=== PATIENT | male | born 1950 | race American Indian/Alaskan Native ===

== ENCOUNTER 2017-01-19 10:23 | Inpatient (IN) | payer MEDICAID ==
--- NOTE | 2017-01-19 11:54 | Emergency Department Report ---
ED General Adult HPI - General Chief complaint: Nausea/Vomiting/Diarrhea Stated complaint: N/V Time Seen by Provider: 01/19/17 11:53 Source: patient, EMS Mode of arrival: Stretcher Limitations: Physical Limitation - History of Present Illness Severity scale (0 -10): 0 - Related Data Allergies Allergy/AdvReac Type Severity Reaction Status Date / Time No Known Allergies Allergy Unverified 01/19/17 11:22 ED Review of Systems ROS: Stated complaint: N/V Other details as noted in HPI ED Past Medical Hx - Past Medical History Previous Medical History?: Yes Hx Hypertension: Yes Hx Psychiatric Treatment: Yes Hx HIV: Yes Additional medical history: GERD, CKD - Social History Smoking Status: Current Every Day Smoker ED Physical Exam - General Limitations: Physical Limitation ED Course Vital Signs 01/19/17 01/19/17 01/19/17 10:53 11:00 11:02 Temperature 98.4 F 98.4 F Pulse Rate 100 H 92 H Respiratory 13 14 Rate Blood Pressure 130/85 Blood Pressure 138/91 [Left] O2 Sat by Pulse 100 100 100 Oximetry Critical care attestation.: If time is entered above; I have spent that time in minutes in the direct care of this critically ill patient, excluding procedure time. ED Disposition Condition: Stable Referrals: PRIMARY CARE, [Primary Care Provider] - 3-5 Days
[2017-01-19 12:01] LABS: Bacteria,Urine 1+ /HPF (Negative); Bilirubin,Urine NEG (Negative); Blood,Urine SM (Negative); Ketones,Urine NEG (Negative); Leukocyte Esterase,Urine MOD (Negative); Mucus,Urine FEW /HPF; Nitrite,Urine NEG (Negative)
[2017-01-19 12:15] LABS: Anion Gap 14 mmol/L; BUN/Creatinine Ratio 11.11; Blood Urea Nitrogen 10 mg/dL (9-20); Calcium 9.3 mg/dL (8.4-10.2); Carbon Dioxide 22 mmol/L (22-30); Chloride 105.1 mmol/L (98-107); Glucose 92 mg/dL (75-100); Potassium 4.6 mmol/L (3.6-5.0); Sodium 136 mmol/L (137-145)
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
[2017-01-19 12:20] LABS: Basophils % (Auto) 0.9 % (0.0-1.8); Eosinophils % (Auto) 4.3 % (0.0-4.3); Hemoglobin 10.3 gm/dl (11.8-15.2); Mean Corpuscular HGB Conc 31 % (32-34); Mean Corpuscular Hemoglobin 28 pg (28-32); Mean Corpuscular Volume 91 fl (84-94); Red Blood Count 3.64 M/mm3 (3.65-5.03); Red Cell Distribution Width 15.2 % (13.2-15.2); White Blood Count 5.7 K/mm3 (4.5-11.0)
[2017-01-19] MEDS ORDERED: ZOFRAN IV ONE (12:22)
[2017-01-19] MEDS ORDERED: PROTONIX IV ONE (12:22)
[2017-01-19] MEDS ORDERED: MORPHINE IV ONE (12:22)
[2017-01-19] MEDS ORDERED: ROCEPHIN/NS 1 GM/50 ML 1 GM/50 ML BAG IV ONE ×2 (12:56→16:33)
[2017-01-19 12:59] LABS: Basophils % (Auto) 0.6 % (0.0-1.8); Eosinophils % (Auto) 4.1 % (0.0-4.3); Hematocrit 32.9 % (35.5-45.6); Hemoglobin 10.4 gm/dl (11.8-15.2); Mean Corpuscular HGB Conc 32 % (32-34); Mean Corpuscular Hemoglobin 29 pg (28-32); Mean Corpuscular Volume 90 fl (84-94); Platelet Count 155 K/mm3 (140-440); Red Blood Count 3.64 M/mm3 (3.65-5.03); Red Cell Distribution Width 15.3 % (13.2-15.2); White Blood Count 5.4 K/mm3 (4.5-11.0)
[2017-01-19 13:03] LABS: Platelet Count 160 K/mm3 (140-440)
[2017-01-19 13:10] LABS: INR 1.01 (0.87-1.13)
[2017-01-19 13:11] LABS: Partial Thromboplastin Time 28.2 Sec. (24.2-36.6)
[2017-01-19 13:15] LABS: Alanine Aminotransferase 14 units/L (7-56); Albumin 3.1 g/dL (3.9-5); Albumin/Globulin Ratio 0.8 %; Alkaline Phosphatase 62 units/L (35-129); Bilirubin,Total 0.3 mg/dL (0.1-1.2); Magnesium 1.9 mg/dL (1.7-2.3); Total Protein 7.2 g/dL (6.3-8.2)
--- NOTE | 2017-01-19 13:34 | XRay Report ---
Single view chest: History: Hypertension. Findings: Borderline cardiomegaly. Trachea is midline. No consolidation, pneumothorax or pleural effusion. Impression: No acute cardiopulmonary findings.
--- NOTE | 2017-01-19 13:44 | History and Physical Report ---
History of Present Illness Chief complaint: Blood coming from my butt History of present illness: 66 YO Male with HTN, GERD, Nicotine Dependence, HIV, Paraplegia, Homeless presents to ED for evaluation. Pt states that he has experienced blood from his colostomy as well as his rectum for the past several weeks. Pt denies fever, chills, CP, Palpitation, rectal trauma, NVD, unintentional weight loss, night sweats, bone pain, productive cough, recent ill contacts. Past History Past Medical History: GERD, HIV/AIDS, hypertension Past Surgical History: Other (colostomy) Social history: single, smoking. denies: alcohol abuse, prescription drug abuse Family history: diabetes, hypertension Medications and Allergies Allergies Allergy/AdvReac Type Severity Reaction Status Date / Time No Known Allergies Allergy Unverified 01/19/17 11:22 Review of Systems All systems: negative Gastrointestinal: other (rectal bleeding, blood in colostomy) Exam - Constitutional Vitals: Temp Pulse Resp BP Pulse Ox 98.4 F 92 H 14 138/91 100 01/19/17 11:00 01/19/17 11:00 01/19/17 11:02 01/19/17 11:00 01/19/17 11:02 General appearance: Present: no acute distress, well-nourished - EENT Eyes: Present: PERRL ENT: hearing intact, clear oral mucosa - Neck Neck: Present: supple, normal ROM - Respiratory Respiratory effort: normal Respiratory: bilateral: CTA - Cardiovascular Heart Sounds: Present: S1 & S2. Absent: rub, click - Extremities Extremities: pulses symmetrical, No edema Peripheral Pulses: within normal limits - Abdominal General gastrointestinal: Present: soft, non-tender, non-distended, normal bowel sounds, other (colostomy in place: pink and viable) Male genitourinary: Present: normal - Integumentary Integumentary: Present: clear, warm, dry - Musculoskeletal Musculoskeletal: strength equal bilaterally, other (BLE paraplegia, ) - Psychiatric Psychiatric: appropriate mood/affect, intact judgment & insight - Neurologic Neurologic: CNII-XII intact, focal deficits, no moves all extremities, no gait normal Results - Labs CBC & Chem 7: 01/19/17 12:36 01/19/17 11:42 Labs: Abnormal lab results 01/19/17 01/19/17 01/19/17 Range/Units 11:36 11:42 11:42 RBC 3.64 L (3.65-5.03) M/mm3 Hgb 10.3 L (11.8-15.2) gm/dl Hct 33.0 L (35.5-45.6) % MCHC 31 L (32-34) % RDW (13.2-15.2) % [place] % (Auto) 9.9 H (0.0-7.3) % Sodium 136 L (137-145) mmol/L Albumin (3.9-5) g/dL Urine WBC (Auto) 36.0 H (0.0-6.0) /HPF 01/19/17 01/19/17 Range/Units 12:36 12:36 RBC 3.64 L (3.65-5.03) M/mm3 Hgb 10.4 L (11.8-15.2) gm/dl Hct 32.9 L (35.5-45.6) % MCHC (32-34) % RDW 15.3 H (13.2-15.2) % [place] % (Auto) 10.9 H (0.0-7.3) % Sodium (137-145) mmol/L Albumin 3.1 L (3.9-5) g/dL Urine WBC (Auto) (0.0-6.0) /HPF Assessment and Plan - Patient Problems (1) GI bleed Current Visit: Yes Status: Acute Qualifiers: GI bleed type/associated pathology: G Gastritis type: G Plan to address problem: Bleeding from colostomy, and Rectal Bleeding:GI consulted, PPI therapy, monitor hgb, supportive care, (2) UTI (urinary tract infection) Current Visit: Yes Status: Acute Qualifiers: Urinary tract infection type: U Hematuria presence: H Indwelling urinary catheter type: I Encounter type: E Plan to address problem: IV abx, ivf, supportive care (3) Paraplegia following spinal cord injury Current Visit: Yes Status: Acute Plan to address problem: supportive care, (4) HIV (human immunodeficiency virus infection) Current Visit: Yes Status: Acute Plan to address problem: outpatient ID f/u (5) Blood loss anemia Current Visit: Yes Status: Acute Plan to address problem: Hgb stable around 10. No transfusion at this time. serial hgb (6) DVT prophylaxis Current Visit: Yes Status: Acute
[2017-01-19 13:47] LABS: Bilirubin,Direct < 0.2 mg/dL (0-0.2); Bilirubin,Indirect 0.1 mg/dL
[2017-01-19] MEDS ORDERED: MILK OF MAGNESIA PO PRN (13:47)
[2017-01-19] MEDS ORDERED: DULCOLAX PR PRN (13:47)
[2017-01-19] MEDS ORDERED: TYLENOL PO PRN (13:47)
[2017-01-19] MEDS ORDERED: DUONEB 0.5 MG-3 MG/3 ML SOLN IH PRN (13:47)
[2017-01-19] MEDS ORDERED: ZOFRAN IV PRN (13:47)
[2017-01-19] MEDS ORDERED: LEVAQUIN 500MG/100ML 500 MG/100 ML BAG IV SCH (14:00)
[2017-01-19] MEDS ORDERED: NACL 0.45% 1000 ML 1,000 ML IV SCH (14:00)
[2017-01-19] MEDS ORDERED: PROVENTIL IH PRN (14:03)
[2017-01-19] MEDS ORDERED: LEVAQUIN 500MG/100ML 500 MG/100 ML BAG IV ONE (16:33)
[2017-01-19] MEDS ORDERED: XYLOCAINE 1%/ EPI 1:100,000 INFILTRATI ONE (18:34)
[2017-01-19] MEDS ORDERED: PERCOCET 5/325 ONE (18:50)
[2017-01-19] MEDS ORDERED: XYLOCAINE 1%/ EPI 1:100,000 INFILTRATI NR (19:00)
[2017-01-19] MEDS ORDERED: PERCOCET 5/325 PO ONE (19:02)
[2017-01-20] MEDS ORDERED: PERCOCET 5/325 PO ONE ×2 (03:19→03:32)
[2017-01-20] MEDS ORDERED: ROXICODONE PO ONE (03:25)
[2017-01-20] MEDS ORDERED: NON-FORMULARY (Oxycodone Hcl/Acetaminophen [Percocet 10/325 Mg] 1 EACH) PO PRN (11:47)
--- NOTE | 2017-01-20 11:53 | Progress Note ---
Assessment and Plan Assessment and plan: Bright red blood per rectum and in colostomy bag. H/H stable. Hemoglobin 10.3. GI consulted. Likely scope tomorrow. HIV/AIDS. Cont HAART Hypertension. BP stable GERD. 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 Supportive care. Full code History Interval history: bright red blood in ostomy bag Hospitalist Physical - Physical exam Narrative exam: Gen: Not in acute distress, Neck:supple, no JVD HEENT: Normocephalic, atraumatic Lungs:Clear to auscultation bilaterally, no rales or wheeze Heart:S1 and S2 reg, no murmurs,rubs or gallop Abdomen:soft, non tender, non distended, ostomy, normal bowel sounds Ext: paraplegia Neuro:Awake,alert,oriented x 3. normal speech, paraplegia - Constitutional Vitals: Temp Pulse Resp BP Pulse Ox 98.2 F 82 20 142/76 97 01/20/17 09:24 01/20/17 09:24 01/20/17 09:24 01/20/17 00:00 01/20/17 09:24 General appearance: Present: no acute distress, well-nourished Results - Labs CBC & Chem 7: 01/21/17 08:03 01/19/17 11:42 Labs: Laboratory Last Values WBC 5.4 K/mm3 (4.5-11.0) 01/19/17 12:36 RBC 3.64 M/mm3 (3.65-5.03) L 01/19/17 12:36 Hgb 10.4 gm/dl (11.8-15.2) L 01/19/17 12:36 Hct 32.9 % (35.5-45.6) L 01/19/17 12:36 MCV 90 fl (84-94) 01/19/17 12:36 MCH 29 pg (28-32) 01/19/17 12:36 MCHC 32 % (32-34) 01/19/17 12:36 RDW 15.3 % (13.2-15.2) H 01/19/17 12:36 Plt Count 155 K/mm3 (140-440) 01/19/17 12:36 Lymph % (Auto) 27.8 % (13.4-35.0) 01/19/17 12:36 [place] % (Auto) 10.9 % (0.0-7.3) H 01/19/17 12:36 Eos % (Auto) 4.1 % (0.0-4.3) 01/19/17 12:36 Baso % (Auto) 0.6 % (0.0-1.8) 01/19/17 12:36 Lymph # 1.5 K/mm3 (1.2-5.4) 01/19/17 12:36 [place] # 0.6 K/mm3 (0.0-0.8) 01/19/17 12:36 Eos # 0.2 K/mm3 (0.0-0.4) 01/19/17 12:36 Baso # 0.0 K/mm3 (0.0-0.1) 01/19/17 12:36 Seg Neutrophils % 56.6 % (40.0-70.0) 01/19/17 12:36 Seg Neutrophils # 3.1 K/mm3 (1.8-7.7) 01/19/17 12:36 PT 13.2 Sec. (12.2-14.9) 01/19/17 12:36 INR 1.01 (0.87-1.13) 01/19/17 12:36 APTT 28.2 Sec. (24.2-36.6) 01/19/17 12:36 Sodium 136 mmol/L (137-145) L 01/19/17 11:42 Potassium 4.6 mmol/L (3.6-5.0) 01/19/17 11:42 Chloride 105.1 mmol/L (98-107) 01/19/17 11:42 Carbon Dioxide 22 mmol/L (22-30) 01/19/17 11:42 Anion Gap 14 mmol/L 01/19/17 11:42 BUN 10 mg/dL (9-20) 01/19/17 11:42 Creatinine 0.9 mg/dL (0.8-1.5) 01/19/17 11:42 Estimated GFR > 60 ml/min 01/19/17 11:42 BUN/Creatinine Ratio 11.11 % 01/19/17 11:42 Glucose 92 mg/dL (75-100) 01/19/17 11:42 Calcium 9.3 mg/dL (8.4-10.2) 01/19/17 11:42 Magnesium 1.9 mg/dL (1.7-2.3) 01/19/17 12:36 Total Bilirubin 0.3 mg/dL (0.1-1.2) 01/19/17 12:36 Direct Bilirubin < 0.2 mg/dL (0-0.2) 01/19/17 12:36 Indirect Bilirubin 0.1 mg/dL 01/19/17 12:36 AST 17 units/L (5-40) 01/19/17 12:36 ALT 14 units/L (7-56) 01/19/17 12:36 Alkaline Phosphatase 62 units/L (35-129) 01/19/17 12:36 Total Creatine Kinase 87 units/L (55-170) 01/19/17 12:36 CK-MB (CK-2) 2.0 ng/mL (0.0-4.0) 01/19/17 12:36 CK-MB (CK-2) Rel Index 2.2 (0-4) 01/19/17 12:36 NT-Pro-B Natriuret Pep 491.8 pg/mL (0-900) 01/19/17 12:36 Total Protein 7.2 g/dL (6.3-8.2) 01/19/17 12:36 Albumin 3.1 g/dL (3.9-5) L 01/19/17 12:36 Albumin/Globulin Ratio 0.8 % 01/19/17 12:36 Urine Color Yellow (Yellow) 01/19/17 11:36 Urine Turbidity Clear (Clear) 01/19/17 11:36 Urine pH 6.0 (5.0-7.0) 01/19/17 11:36 Ur Specific [place] 1.019 (1.003-1.030) 01/19/17 11:36 Urine Protein 30 mg/dl mg/dL (Negative) 01/19/17 11:36 Urine Glucose (UA) Neg mg/dL (Negative) 01/19/17 11:36 Urine Ketones Neg mg/dL (Negative) 01/19/17 11:36 Urine Blood Sm (Negative) 01/19/17 11:36 Urine Nitrite Neg (Negative) 01/19/17 11:36 Urine Bilirubin Neg (Negative) 01/19/17 11:36 Urine Urobilinogen 4.0 mg/dL (<2.0) 01/19/17 11:36 Ur Leukocyte Esterase Mod (Negative) 01/19/17 11:36 Urine WBC (Auto) 36.0 /HPF (0.0-6.0) H 01/19/17 11:36 Urine RBC (Auto) 4.0 /HPF (0.0-6.0) 01/19/17 11:36 U Epithel Cells (Auto) < 1.0 /HPF (0-13.0) 01/19/17 11:36 Urine Bacteria (Auto) 1+ /HPF (Negative) 01/19/17 11:36 Urine Mucus Few /HPF 01/19/17 11:36 Blood Type A POSITIVE 01/19/17 12:36 Antibody Screen Negative 01/19/17 12:36
[2017-01-20] MEDS ORDERED: ABACAVIR SULFATE 300 MG PO SCH (12:00)
[2017-01-20] MEDS ORDERED: NON-FORMULARY (Ranitidine Hcl [Acid Control] 150 MG) PO SCH (12:00)
[2017-01-20] MEDS: PERCOCET 5/325 PO PRN ×2 (12:55→18:06)
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
[2017-01-20] MEDS ORDERED: CITRATE OF MAGNESIA PO ONE (17:00)
[2017-01-20] MEDS: CARAFATE PO SCH (18:07)
[2017-01-20] MEDS: NORVIR PO SCH (21:44)
[2017-01-20] MEDS: EPIVIR PO SCH (21:45)
[2017-01-20] MEDS: PREZISTA PO SCH (21:45)
[2017-01-20] MEDS: ZIAGEN PO SCH (21:46)
[2017-01-20] MEDS: ZOFRAN ODT PO SCH (21:47)
[2017-01-20] MEDS: AMBIEN PO PRN (21:59)
[2017-01-20] MEDS ORDERED: NON-FORMULARY (Pravastatin Sodium [Pravastatin] 40 MG) PO SCH (22:00)
[2017-01-20] MEDS ORDERED: ZOCOR PO SCH (22:00)
[2017-01-21] MEDS: PERCOCET 5/325 PO PRN ×3 (00:21→21:14)
[2017-01-21] MEDS: CARAFATE PO SCH ×3 (00:22→14:00)
[2017-01-21] MEDS: EPIVIR PO SCH ×3 (01:44→21:17)
[2017-01-21] MEDS: ZOFRAN ODT PO SCH ×3 (01:54→21:17)
[2017-01-21] MEDS: NORVIR PO SCH ×3 (01:59→21:16)
[2017-01-21] MEDS: PREZISTA PO SCH ×3 (02:04→21:16)
[2017-01-21] MEDS: ZIAGEN PO SCH ×3 (02:21→21:18)
[2017-01-21] MEDS ORDERED: CITRATE OF MAGNESIA PO ONE (06:00)
[2017-01-21 08:28] LABS: Hematocrit 31.1 % (35.5-45.6); Hemoglobin 9.8 gm/dl (11.8-15.2)
[2017-01-21] MEDS: PEPCID PO SCH (10:50)
[2017-01-21] MEDS: THERAGRAN Tab PO SCH (10:51)
[2017-01-21] MEDS: METAMUCIL PO SCH ×2 (10:55→10:56)
--- NOTE | 2017-01-21 12:12 | Admit Criteria Form ---
Admission Criteria Documentation: GASTROINTESTINAL BLEEDING, LOWER Clinical Indications for Admission to Inpatient Care ( Place 'X' for any and all applicable criteria): Admission is indicated for ANY ONE of the following(1)(2)(3)(4)(5): [ ]I. Active gross bleeding per rectum [X]II. Inpatient admission required rather than observation care (Also use Gastrointestinal Bleeding, Lower: Observation Care as appropriate) because of ANY ONE of the following: [ ]a) Hemodynamic instability that is severe or persistent [ ]b) Anemia requiring inpatient admission as indicated by ALL of the following: [ ]1) Presence of significant clinical finding indicated by ANY ONE of the following: [ ]A. Tachycardia for age [ ]B. Orthostatic vital sign changes [ ]C. Cognitive impairment [ ]D. Heart failure [ ]E. Chest pain [ ]F. Exertional dyspnea [ ]G. Other findings suggesting inadequate perfusion (eg, peripheral or myocardial ischemia, end organ dysfunction) [ ]2) Initial (eg, emergency department, observation care) treatment with transfusion or volume replacement is judged inappropriate (due to severity of the finding) or has been ineffective [ ]c) Severe pain requiring acute inpatient management [ ]d) Absent bowel sounds with complete ileus [ ]e) Signs of intestinal obstruction or peritonitis [A] [ ]f) High-risk low platelet count [ ]g) Severe electrolyte abnormalities requiring inpatient care [ ]h) Acute renal failure [ ]i) High fever or infection requiring inpatient admission as indicated by ANY ONE of the following(8)(9): [ ]1) Appropriate outpatient or observation care antimicrobial treatment unavailable, not effective, or not feasible Documented bacteremia [ ]2) Documented bacteremia [ ]3) Temperature greater than 104.9 degrees F ( 40.5 degrees C) (oral) [ ]4) Temperature greater than 103.1 degrees F ( 39.5 degrees C) (oral) or less than 96.8 degrees F (36 degrees C) (rectal) that does not respond to all emergency treatment measures [ ]j) IV fluid to replace significant ongoing losses ( greater than 3 L/m2 per day) [ ]k) Immediate inpatient surgery needed [ ]l) Parenteral nutrition regimen that must be implemented on inpatient basis [X]m) Other condition, treatment or monitoring requiring inpatient admission [ ]III. Unstable comorbid illness (renal, hepatic, pulmonary, hematologic, neurologic, or cardiac) [ ]IV. Failure to control bleeding after colonoscopy [ ]V. Coagulopathy [ ]. Suspected or known ischemic colitis(6) [ ]VII. Previous aortic graft placement or known aortic aneurysm Extended stay beyond goal length of stay may be needed for(3)(4)(28): [ ]a) Emergency surgery [ ]b) Coagulation abnormalities(26) [ ]c) Recurrent or persistent bleeding, continued vital sign instability(27)( 28) [ ]d) Active comorbidities (eg, renal insufficiency, heart failure, pre- existing liver disease) The original [employer] content created by [employer] has been revised. The portions of the content which have been revised are identified through the use of italic text or in bold, and [facility] has neither reviewed nor approved the modified material. All other unmodified content is copyright [facility]. Please see references footnoted in the original [employer] edition 2016 Admission Criteria Met: Yes
[2017-01-21] MEDS ORDERED: WATER FOR IRRIG STERILE IR ONE ×2 (12:18→16:15)
[2017-01-21] MEDS ORDERED: WATER FOR IRRIG STERILE ONE (12:18)
[2017-01-21] MEDS ORDERED: INFANTS' GAS RELIEF PO ONE (12:20)
[2017-01-21] MEDS ORDERED: NACL 0.9% 1000 ML 1,000 ML IV SCH (14:00)
--- NOTE | 2017-01-21 14:02 | Anesthesia Day of Surgery ---
Anesthesia Day of Surgery - Day of Surgery Patient Examined: Yes Patient H&P Reviewed: Yes Patient is NPO: Yes Beta Blockers: Yes Cardiac Clearance: No Pulmonary Clearance: No
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
[2017-01-21] MEDS ORDERED: DIPRIVAN 10 MG/ML IV ONE ×2 (15:41)
--- NOTE | 2017-01-21 16:42 | Post Operative Note ---
Pre-op diagnosis: rectal bleeding Post-op diagnosis: same Findings: Rectum: 25 cm distal colon to surgical site - mild/moderate inflammation noted throughout (bx's) - negative other Ostomy: approx 70 cm remaining colon noted - poor prep - otherwise benign - possible diversion colitis Procedure: Colonoscopy Anesthesia: MAC Surgeon: ONEL GAMBOA Estimated blood loss: none Pathology: list Specimen disposition: to lab Condition: stable Disposition: floor
[2017-01-21] MEDS ORDERED: DILAUDID IM PRN (16:44)
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
[2017-01-21] MEDS: AMBIEN PO PRN (21:14)
[2017-01-21] MEDS ORDERED: ROWASA PR SCH (22:00)
--- NOTE | 2017-01-22 02:55 | Operative Report ---
INDICATIONS: 1. Rectal bleeding. 2. Anemia. MEDICATIONS: Propofol per [employer]MENT. COMPLICATIONS: None. DESCRIPTION OF PROCEDURE: The patient was brought to procedure suite. The patient had the procedure discussed with him at length. All risks, complications, and benefits were discussed after which consent signed for the procedure to be performed. The patient was placed in left decubitus position. Rectal exam performed. No retroflexion view performed. The patient's vital signs remained stable throughout the procedure. FINDINGS: It should be noted that the colonoscope was passed both to the rectum and through the patient's ostomy. Initial evaluation was done of the rectum. The endoscope was placed in the rectum and brought to the level of 25 cm from the anal verge. There was noted to be mild to moderate mucosal inflammation without significant ulcerations. Biopsies were taken and sent to pathology. The scope was then passed with ileostomy in approximately 75 cm of colon noted. The colon mucosa throughout appeared normal. The ostomy site itself appeared normal. It should be noted that that there was a poor prep, but procedure was completed. The patient tolerated the procedure well. No complications during the procedure. ASSESSMENT: 1. A 2.5 cm of colon noted from the anus to the surgical site in the rectum. 2. Mucosal inflammation noted in the anorectal area, possible colitis with the possibility of diversion colitis. 3. Ostomy site intact. 4. A 75 cm of colon visualized through the ostomy site intact. PLAN: 1. Follow up biopsy results. 2. Steroid enema. 3. Advance diet based on progress. 4. We will follow. [facility]# [id number] [facility]
[2017-01-22 06:23] LABS: Hematocrit 29.3 % (35.5-45.6); Hemoglobin 9.3 gm/dl (11.8-15.2)
[2017-01-22] MEDS: PERCOCET 5/325 PO PRN ×2 (08:00→14:23)
[2017-01-22] MEDS: CARAFATE PO SCH ×3 (08:02→11:44)
[2017-01-22 08:49] VITALS: BP 104/58
--- NOTE | 2017-01-22 09:11 | Discharge Summary ---
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 Pt states that he has experienced blood from his colostomy as well as his rectum for the past several weeks. Pt denies fever, chills, CP, Palpitation, rectal trauma, NVD, unintentional weight loss, night sweats, bone pain, productive cough, recent ill contacts. Patient was admitted and evaluated for GI bleed. Gastroenterology was consulted and Colonoscopy was done showed some mucosal inflammation which is suggestive of colitis and patient was treated with steroid enema. Patient didn' t have any bleeding. Patient was discharged with mesalamine per rectum. Patient was stable at the time of discharge. Patient recently changed his primary care physician and didn't have any of his medications so I gave him a refill for 1 month including his HIV medications with the advise to follow-up with his PCP and ID doctor. I have also scheduled to see GI as an outpatient for the biopsy results and follow-up. Hemoglobin/hematocrit was stable at the time of discharge. Disposition: DISCHARGED TO HOME OR SELFCARE Time spent for discharge: 31 minutes - Discharge Diagnoses (1) HIV (human immunodeficiency virus infection) Status: Acute (2) Paraplegia following spinal cord injury Status: Acute (3) Bleeding from colostomy Status: Acute (4) GI bleed Status: Acute Qualifiers: GI bleed type/associated pathology: G Gastritis type: G Core Measure Documentation - Palliative Care Palliative Care/ Comfort Measures: Not Applicable - Core Measures Any of the following diagnoses?: none Exam - Physical Exam Narrative exam: Not in cardiopulmonary distress. The patient appeared well nourished and normally developed. Vital signs as documented. Head exam is unremarkable. No scleral icterus . Neck is without jugular venous distension, thyromegaly, or carotid bruits. Lungs are clear to auscultation. Cardiac exam reveals regular rate and Rhythm. First and second heart sounds normal. No murmurs, rubs or gallops. Abdominal exam reveals colostomy . 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 - Constitutional Vitals: Temp Pulse Resp BP Pulse Ox 98.2 F 87 18 104/58 98 01/22/17 07:15 01/22/17 07:15 01/22/17 07:15 01/22/17 07:15 01/22/17 07:15 Plan Activity: advance as tolerated Weight Bearing Status: Non-Weight Bearing Diet: regular Follow up with: PRIMARY CARE, [Primary Care Provider] - 3-5 Days Prescriptions: clonazePAM 0.5 mg PO QHS #20 tablet Mesalamine [Rowasa] 4 gm SC QHS #30 bottle Pravastatin Sodium [Pravastatin] 40 mg PO QHS #30 tablet Zolpidem [Ambien] 10 mg PO QHS PRN #30 tablet PRN Reason: Sleep Abacavir Sulfate [Ziagen ORAL LIQ] 300 mg PO BID #60 solution ALBUTEROL NEB's [Proventil 0.083% NEBS] 2.5 mg IH Q4H PRN #60 nebu PRN Reason: Shortness Of Breath Bisacodyl [Dulcolax suppos] 10 mg SC QDAY PRN #30 supp.rect PRN Reason: Constipation unrelieved by MOM Darunavir [Prezista] 1,200 mg PO BID #60 tablet guaiFENesin DM [Robitussin Dm] 10 ml PO Q4H PRN #1 oral.liqd PRN Reason: Cough lamiVUDine [Epivir] 150 mg PO BID #60 tablet Levofloxacin [Levaquin TAB] 500 mg PO Q24HR #5 tablet Ondansetron [Zofran ODT TAB] 4 mg PO Q8HR #20 tab.rapdis Oxycodone HCl/Acetaminophen [Percocet 10/325 mg] 1 each PO Q6HR PRN #20 tablet PRN Reason: Pain Psyllium Seed (with Sugar) [Metamucil] 1 each PO QDAY #30 packet Ranitidine HCl [Acid Control] 150 mg PO QDAY #30 tablet Ritonavir [Norvir] 100 mg PO BID #60 tab Sucralfate [Carafate] 1 gm PO ACHS #30 tablet
[2017-01-22] MEDS ORDERED: ROBITUSSIN DM PO PRN (10:33)
[2017-01-22] MEDS: NORVIR PO SCH ×2 (11:37→11:44)
[2017-01-22] MEDS: ZIAGEN PO SCH (11:39)
[2017-01-22] MEDS: PREZISTA PO SCH (11:40)
[2017-01-22] MEDS: EPIVIR PO SCH (11:40)
[2017-01-22] MEDS: THERAGRAN Tab PO SCH (11:41)
[2017-01-22] MEDS: PEPCID PO SCH (11:41)
[2017-01-22] MEDS: METAMUCIL PO SCH (11:45)
--- NOTE | 2017-01-22 13:52 | Event Note ---
Date: 01/22/17 Patient discharge noted. I have provided the patient with office information to follow up in clinic. He is to follow up in 2-3 weeks as Pathology has not resulted. He will need to discharge on Rowasa MD until follow up in clinic. ( steroid enemas not available). Martha Akins, ACNP-BC
[2017-01-22] MEDS: ZOFRAN ODT PO SCH (14:25)
[2017-01-23] MEDS ORDERED: LEVAQUIN PO SCH (10:00)
== END 2017-01-22 15:15 | disposition home or self-care (01) | DRG 393 ==
LOC: ED 10:23 → 3A 13:47
PROVIDERS: ADMIT Internal Medicine; ATTEND Internal Medicine
PROC: 05HY33Z Insertion of Infusion Device into Upper Vein, Percutaneous Approach (ICD-10-PCS; 2017-01-19)
PROC: 0DBP8ZX Excision of Rectum, Via Natural or Artificial Opening Endoscopic, Diagnostic (ICD-10-PCS; principal; 2017-01-21)
DX: K94.01 Colostomy hemorrhage (principal); B20 Human immunodeficiency virus [HIV] disease; K92.2 Gastrointestinal hemorrhage, unspecified; N39.0 Urinary tract infection, site not specified; G82.20 Paraplegia, unspecified; D62 Acute posthemorrhagic anemia; K52.9 Noninfective gastroenteritis and colitis, unspecified; N18.9 Chronic kidney disease, unspecified; K21.9 Gastro-esophageal reflux disease without esophagitis; I12.9 Hypertensive chronic kidney disease with stage 1 through stage 4 chronic kidney disease, or unspecified chronic kidney disease; F17.210 Nicotine dependence, cigarettes, uncomplicated; Y83.8 Other surgical procedures as the cause of abnormal reaction of the patient, or of later complication, without mention of misadventure at the time of the procedure; Y92.89 Other specified places as the place of occurrence of the external cause; Z59.0 Homelessness; Z83.3 Family history of diabetes mellitus; Z82.49 Family history of ischemic heart disease and other diseases of the circulatory system
CPT/HCPCS: 36415; 71010; 80048; 80074; 81001; 82550; 82553; 83735; 83880; 85014; 85018; 85025; 85610; 85730; 86850; 86900; 86901; 87086; 88305; 96365; 96366; 96368; 96375; C9113; J0696; J1170; J1956; J2270; J2405; J2704; Q0162

== ENCOUNTER 2017-01-25 15:53 | Emergency (ER) | payer MEDICAID ==
[2017-01-25] MEDS ORDERED: DILAUDID IM ONE ×2 (17:41→17:44)
[2017-01-25] MEDS ORDERED: ZOFRAN IM ONE (17:44)
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
[2017-01-25 19:38] LABS: Basophils % (Auto) 0.5 % (0.0-1.8); Eosinophils % (Auto) 2.4 % (0.0-4.3); Hematocrit 34.5 % (35.5-45.6); Hemoglobin 10.9 gm/dl (11.8-15.2); Mean Corpuscular HGB Conc 32 % (32-34); Mean Corpuscular Hemoglobin 29 pg (28-32); Mean Corpuscular Volume 92 fl (84-94); Platelet Count 250 K/mm3 (140-440); Red Blood Count 3.77 M/mm3 (3.65-5.03); Red Cell Distribution Width 15.3 % (13.2-15.2); White Blood Count 7.8 K/mm3 (4.5-11.0)
[2017-01-25 19:46] LABS: Albumin 3.6 g/dL (3.9-5); Albumin/Globulin Ratio 0.9 %; BUN/Creatinine Ratio 11.25; Bilirubin,Total 0.2 mg/dL (0.1-1.2); Calcium 9.7 mg/dL (8.4-10.2); Chloride 95.5 mmol/L (98-107); Potassium 4.2 mmol/L (3.6-5.0); Total Protein 7.8 g/dL (6.3-8.2)
--- NOTE | 2017-01-25 19:47 | Admit Criteria Form ---
Admission Criteria Documentation: ABDOMINAL PAIN Clinical Indications for Admission to Inpatient Care (Place 'X' for any and all applicable criteria): Admission is indicated for ANY ONE of the following(1)(2)(3)(4)(5): [X ]I. Inpatient admission required rather than observation care (Also use Abdominal Pain: Observation Care, as appropriate) because of ANY ONE of the following: [ ]a) Severe pain requiring acute inpatient management [ X]b) Identification of etiology/finding that requires inpatient care (eg, aortic dissection, free air) [ ]c) Absent bowel sounds with complete ileus(6) [ ]d) Suspected toxic megacolon [ ]e) Severe electrolyte abnormalities requiring inpatient care [ ]f) High fever or infection requiring inpatient admission as indicated by ANY ONE of following(7)(8): [ ] i) Appropriate outpatient or observational care antimicrobial treatment unavailable, not effective, or not feasible [ ] ii) Documented bacteremia [ ] iii) Temperature > 104.9 degrees F (oral) [ ] iv) T >103.1 F (oral) or < 96.8 F(rectal) that does not respond to all emergency treatment measures [ ]g) Signs of intestinal obstruction [B] [ ]h) Hemodynamic instability [ ]i) IV fluid to replace significant ongoing losses (greater than 3 L/m2 per day) (12)(13) [ ]j) Percutaneous or open drainage (eg, abscess, biliary tract ) procedures [ ]k) Parenteral nutrition regimen that must be implemented on inpatient basis [ ]l) Other condition,treatment or monitoring requiring inpatient admission. [ ]II. Peritoneal signs present [ ]III. Surgery needed that cannot be performed on an ambulatory basis. [ ]IV. Evaluation requires patient to not eat or drink for extended period ( eg, more than 24 hours). [ ]V. Contraindications and/or Inappropriate clinical situations for Observational Care in patients with abdominal pain, when ANY ONE of the following is required: [ ]a) Thorough evaluation is required to prevent catastrophic events due to delays in diagnosing (e.g.Mesenteric ischemia) 1,3 [ ]b) Patient with severe pathology or with chronic symptoms unlikely to improve in the ED stay (3) [ ]. General contraindications and/or Inappropriate clinical situations for Observational Care in patients with abdominal pain, when ANY ONE of the following is required: [ ]a) Prediction of prolongation of LOS based on ANY ONE of the following may be considered as a contraindication for observational care 2, 3, 4, 5, 6, 7, 8, 9, 10, 11 [ ]i) Age > 65 yrs. [ ]ii) Patient arriving by ambulance [ ]iii) Patient with high acuity [ ]iv) Patient requiring vital sign monitoring [ ]v) Patient on IV medication [ ]b) Systolic blood pressures 180mmHg 3,12 [ ]c) Patient with altered mental status including delirium and other alteration of consciousness, (3) [ ]d) Patient whose discharge disposition will be to a intermediate home or rehabilitation home should not be managed in Emergency Department Observation Unit. CMS rule requires 3 days hospital stay before such placement.3,13 [ ]e) Patient with failure to thrive due to broad array of etiologies 3,16,17 [ ]f) Inability to ambulate 3,14 Extended stay beyond goal length of stay may be needed for(2)(3): [ ]a) Persistent abdominal pain with suspected intra-abdominal process [ ]b) Diagnosed condition requiring continued stay (e.g., pancreatitis, complicated diverticulitis) [ ]c) Surgery (e.g., colectomy) The original [email or web address] content created by [employer] has been revised. The portions of the content which have been revised are identified through the use of italic text or in bold, and [facility] has neither reviewed nor approved the modified material.All other unmodified content is copyright [facility]. Please see references footnoted in the original [facility] edition 2016
--- NOTE | 2017-01-25 22:01 | Cat Scan Report ---
FINAL REPORT PROCEDURE: CT ABDOMEN PELVIS WO CON TECHNIQUE: Computerized axial tomography of the abdomen and pelvis was performed without intravenous contrast. This study is performed without intravascular contrast material and its sensitivity for abdominal and pelvic pathology, including neoplasms, inflammation, abscess, free fluid, thrombosis, arterial dissection and infarction, is reduced compared with a contrast enhanced study. HISTORY: llq pain, colostomy, no stool output COMPARISON: No prior studies are available for comparison. FINDINGS: Lower Lung sykes: Mild emphysematous changes are visualized in the left lung base. There is some linear atelectasis or minimal scarring in the inferior aspect of the right middle lobe. Mild peripheral emphysematous changes seen in the right lung base posteriorly. Upper Abdomen: There is a 9.7 millimeter low-density nodule centrally in the left lobe of the liver which appears represent a small hepatic cyst. The liver is otherwise unremarkable. The gallbladder is surgically absent. The pancreas and the spleen are unremarkable. Adrenal glands are unremarkable. Kidneys, Ureters and Urinary bladder: The left kidney is surgically absent. There is a 9.3 millimeter nodular density in the midportion of the right kidney laterally. This has intermediate to mild increased density. This may represent a hemorrhagic cyst or dense cyst. I cannot exclude a small solid nodule. The right kidney and the right ureter otherwise are unremarkable. Suprapubic catheter is seen in the urinary bladder which is nearly empty Retroperitoneum: Atherosclerotic changes are seen in the abdominal aorta. No aneurysm is visualized. Nonspecific subcentimeter lymph nodes are seen in the retroperitoneum. No pathologically enlarged lymph nodes are identified. Bowel: There is a colostomy visualized in the left lower quadrant. Moderate amount of stool seen throughout the remainder of the colon. Normal-appearing appendix is seen in the right lower quadrant. Segment of the descending colon and sigmoid colon appear to been resected. There is are suture line and blind loop involving the sigmoid colon and rectum. The padilla of the rectum appear mildly thickened. Small bowel loops are not significantly distended. Reproductive organs: There is nonspecific mild diffuse prostate enlargement. Other: There is severe muscular atrophy of the right and left buttocks and visualized musculature of the right lower extremity. The there is a large decubitus ulcer right ischial region. There is sclerotic change in the right ischium which may represent chronic osteomyelitis. IMPRESSION: Colostomy left lower quadrant. Moderate amount of stool seen in the proximal colon. Pdailla of the sigmoid colon and rectum show mild nonspecific thickening consistent with a nonspecific colitis. Prior left nephrectomy. Dense nodule right renal cortex laterally may represent a dense cyst. I cannot exclude a solid nodule. Recommend follow-up renal ultrasound. Cholecystectomy. Muscular atrophy as described. Large decubitus ulcer right ischial region.. Sclerotic change seen right ischium which may represent chronic osteomyelitis. Nonspecific diffuse prostate enlargement. Mild emphysematous changes seen in the lower lung sykes. Small hepatic cyst suspected.
[2017-01-25 22:31] LABS: Bacteria,Urine 3+ /HPF (Negative); Bilirubin,Urine NEG (Negative); Blood,Urine MOD (Negative); Ketones,Urine NEG (Negative); Leukocyte Esterase,Urine LG (Negative); Mucus,Urine 3+ /HPF; Nitrite,Urine POS (Negative); Urobilinogen,Urine < 2.0 mg/dL (<2.0)
[2017-01-25] MEDS ORDERED: CEPHULAC PO ONE (22:44)
--- NOTE | 2017-01-26 09:59 | XRay Report ---
ABDOMEN, 2 views: History: Left abdominal pain, swelling near colostomy. Supine and upright views the abdomen demonstrate mild fecal retention in the colon. No evidence for dilated bowel, fluid levels or free air. There are multiple surgical clips and sutures in both upper quadrants, correlate with history. The left lower quadrant ostomy site is unremarkable. IMPRESSION: Mild fecal retention. No acute process noted.
[2017-01-26 11:41] VITALS: BP 143/88
== END 2017-01-26 09:45 | disposition home or self-care (01) ==
LOC: ED 15:53
DX: K59.00 Constipation, unspecified (principal); G82.20 Paraplegia, unspecified; F17.200 Nicotine dependence, unspecified, uncomplicated; I10 Essential (primary) hypertension; Z86.59 Personal history of other mental and behavioral disorders; K21.9 Gastro-esophageal reflux disease without esophagitis; Z93.3 Colostomy status; Z21 Asymptomatic human immunodeficiency virus [HIV] infection status; Z98.890 Other specified postprocedural states
CPT/HCPCS: 36415; 74020; 74176; 80053; 81001; 83690; 85025; 87086; 96372; 99285; J1170; J2405

== ENCOUNTER 2017-02-02 06:45 | Emergency (ER) | payer MEDICAID ==
[2017-02-02] MEDS ORDERED: PERCOCET 5/325 PO ONE (07:34)
[2017-02-02 07:59] LABS: Anion Gap 14 mmol/L; Blood Urea Nitrogen 21 mg/dL (9-20); Calcium 8.8 mg/dL (8.4-10.2); Carbon Dioxide 22 mmol/L (22-30); Chloride 108.2 mmol/L (98-107); Glucose 101 mg/dL (75-100); Potassium 4.5 mmol/L (3.6-5.0); Sodium 140 mmol/L (137-145)
[2017-02-02 08:00] LABS: Creatine Kinase MB 1.8 ng/mL (0.0-4.0)
[2017-02-02 08:01] LABS: Magnesium 1.8 mg/dL (1.7-2.3)
[2017-02-02 08:09] LABS: Basophils % (Auto) 0.5 % (0.0-1.8); Eosinophils % (Auto) 2.5 % (0.0-4.3); Hematocrit 28.5 % (35.5-45.6); Hemoglobin 8.9 gm/dl (11.8-15.2); Mean Corpuscular HGB Conc 31 % (32-34); Mean Corpuscular Hemoglobin 28 pg (28-32); Mean Corpuscular Volume 91 fl (84-94); Platelet Count 188 K/mm3 (140-440); Red Blood Count 3.12 M/mm3 (3.65-5.03); Red Cell Distribution Width 15.1 % (13.2-15.2); White Blood Count 7.5 K/mm3 (4.5-11.0)
[2017-02-02 08:16] LABS: INR 1.02 (0.87-1.13); Partial Thromboplastin Time 29.6 Sec. (24.2-36.6)
--- NOTE | 2017-02-02 09:28 | XRay Report ---
AP CHEST : 02/02/17 06:45:00 CLINICAL: Hypertension. COMPARISON:01/19/17 FINDINGS: The heart is normal size. Relatively large central pulmonary arteries and lucency of the upper lobes. No airspace disease or pleural effusion. Mild blunting of the right costophrenic angle. No tubes or lines. The bones and soft tissues are unremarkable. IMPRESSION: COPD and no acute change.
[2017-02-02 10:06] LABS: Urine Drugs of Abuse Note Disclamer
[2017-02-02 10:33] LABS: Bacteria,Urine 2+ /HPF (Negative); Bilirubin,Urine NEG (Negative); Blood,Urine SM (Negative); Ketones,Urine NEG (Negative); Leukocyte Esterase,Urine SM (Negative); Mucus,Urine FEW /HPF; Nitrite,Urine POS (Negative); Protein,Urine <15 mg/dL mg/dL (Negative); Urobilinogen,Urine < 2.0 mg/dL (<2.0)
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
[2017-02-02 13:22] VITALS: BP 96/47
== END 2017-02-02 13:23 | disposition home or self-care (01) ==
LOC: ED 06:45
DX: G82.20 Paraplegia, unspecified (principal); I45.10 Unspecified right bundle-branch block; D53.9 Nutritional anemia, unspecified; F41.9 Anxiety disorder, unspecified; R06.00 Dyspnea, unspecified; I12.9 Hypertensive chronic kidney disease with stage 1 through stage 4 chronic kidney disease, or unspecified chronic kidney disease; N18.9 Chronic kidney disease, unspecified; K21.9 Gastro-esophageal reflux disease without esophagitis; Z88.0 Allergy status to penicillin; Z21 Asymptomatic human immunodeficiency virus [HIV] infection status
CPT/HCPCS: 36415; 71010; 80048; 80307; 81001; 82140; 82150; 82550; 82553; 83690; 83735; 85025; 85379; 85610; 85730; 86140; 86850; 86900; 86901; 87040; 87086; 93005; 93010; 99284

== ENCOUNTER 2017-02-11 12:39 | Emergency (ER) | payer MEDICAID ==
[2017-02-11] MEDS ORDERED: PERCOCET 5/325 PO ONE (13:41)
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
[2017-02-11 15:02] VITALS: BP 108/72
== END 2017-02-11 14:00 | disposition home or self-care (01) ==
LOC: ED 12:39
DX: M79.1 Myalgia (principal); I10 Essential (primary) hypertension; K21.9 Gastro-esophageal reflux disease without esophagitis; Z88.0 Allergy status to penicillin
CPT/HCPCS: 99283

== ENCOUNTER 2017-02-13 23:07 | Emergency (ER) | payer MEDICAID ==
[2017-02-13 23:26] VITALS: BP 124/57
[2017-02-14] MEDS ORDERED: LASIX PO ONE (02:54)
[2017-02-14] MEDS ORDERED: TESSALON PERLES PO ONE (02:54)
[2017-02-14] MEDS ORDERED: MORPHINE IM ONE (02:54)
[2017-02-14] MEDS ORDERED: DUONEB 0.5 MG-3 MG/3 ML SOLN IH ONE (05:51)
[2017-02-14] MEDS ORDERED: ZITHROMAX PO ONE (05:52)
[2017-02-14] MEDS ORDERED: DELTASONE PO ONE (05:52)
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
--- NOTE | 2017-02-14 07:51 | XRay Report ---
AP CHEST: HISTORY: chest pain The lungs are mildly hyperinflated. No evidence for pneumonia, pleural effusion or pneumothorax. Heart and mediastinal structures are within normal limits. The thoracic cage is grossly intact. No significant change since 02/02/17. IMPRESSION: Emphysematous changes. No acute process.
== END 2017-02-14 09:21 | disposition home or self-care (01) ==
LOC: ED 23:07
DX: J44.1 Chronic obstructive pulmonary disease with (acute) exacerbation (principal); J06.9 Acute upper respiratory infection, unspecified; I10 Essential (primary) hypertension; Z21 Asymptomatic human immunodeficiency virus [HIV] infection status; I12.9 Hypertensive chronic kidney disease with stage 1 through stage 4 chronic kidney disease, or unspecified chronic kidney disease; N18.9 Chronic kidney disease, unspecified
CPT/HCPCS: 71010; 96372; 99284; J2270; J7512

== ENCOUNTER 2017-02-16 15:35 | Emergency (ER) | payer MEDICAID ==
[2017-02-16 16:45] LABS: Basophils % (Auto) 0.7 % (0.0-1.8); Eosinophils % (Auto) 1.1 % (0.0-4.3); Hematocrit 31.9 % (35.5-45.6); Mean Corpuscular HGB Conc 31 % (32-34); Mean Corpuscular Hemoglobin 29 pg (28-32); Mean Corpuscular Volume 91 fl (84-94); Red Blood Count 3.51 M/mm3 (3.65-5.03); Red Cell Distribution Width 15.3 % (13.2-15.2); White Blood Count 10.2 K/mm3 (4.5-11.0)
[2017-02-16 17:02] LABS: Anion Gap 14 mmol/L; Blood Urea Nitrogen 21 mg/dL (9-20); Carbon Dioxide 23 mmol/L (22-30); Chloride 103.7 mmol/L (98-107); Glucose 82 mg/dL (75-100); Potassium 3.9 mmol/L (3.6-5.0); Sodium 137 mmol/L (137-145)
[2017-02-16 17:34] LABS: Platelet Count 202 K/mm3 (140-440)
[2017-02-16] MEDS ORDERED: PERCOCET 5/325 PO ONE (20:49)
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
[2017-02-16] MEDS ORDERED: NACL ONE (21:04)
[2017-02-16 22:07] LABS: Bacteria,Urine 1+ /HPF (Negative); Bilirubin,Urine NEG (Negative); Blood,Urine SM (Negative); Ketones,Urine NEG (Negative); Leukocyte Esterase,Urine LG (Negative); Mucus,Urine FEW /HPF; Nitrite,Urine POS (Negative)
[2017-02-16 22:08] LABS: WBC,Urine > 182.0 /HPF (0.0-6.0)
[2017-02-16 23:24] VITALS: BP 132/76
--- NOTE | 2017-02-17 00:17 | Cat Scan Report ---
FINAL REPORT PROCEDURE: CT ABDOMEN PELVIS W CON TECHNIQUE: Computerized axial tomography of the abdomen and pelvis was performed after the IV injection of iodinated nonionic contrast. HISTORY: peristomal abdominal pain and swelling COMPARISON: 01/25/2017 FINDINGS: Visualized lower thorax: There is a 14 millimeter nodule at the left lung base. This was not present previously. Possibility of neoplasm cannot be entirely excluded.. Liver: Normal size and attenuation. There is a 1 centimeters cyst in the left lobe of the liver. There is no solid liver mass. Spleen: Normal size and attenuation. Gallbladder and biliary system: There has been a cholecystectomy. The bile ducts are normal in caliber.. Pancreas: Normal. Adrenals: Normal. Kidneys: There has been a left nephrectomy. There is cysts in the right kidney. There is an enhancing cortical nodule measuring 6 millimeters. MRI may be indicated for further evaluation.. GI tract: There has been a left hemicolectomy. There is a left lower quadrant colostomy. There is large amount of mesenteric fat at the ostomy. There is no mass or inflammation. There is no bowel obstruction or acute colitis. The stomach, small bowel and appendix are normal.. Lymph nodes and mesentery: Normal. Vasculature: Normal. Bladder: There is a suprapubic bladder catheter.. Reproductive organs: Normal. Peritoneum: There is no ascites or free air, abscess or adenopathy.. Musculoskeletal structures: No significant abnormality. Other: There is atrophy of the right psoas muscle. There are bilateral decubitus ulcer defects. There is bony overgrowth of the right ischial tuberosity without specific evidence of acute destructive or traumatic injury.. IMPRESSION: There is a 14 millimeter nodule at the left lung base. This was not present previously. Possibility of neoplasm cannot be entirely excluded.. There is a 1 centimeters cyst in the left lobe of the liver. There is no solid liver mass. There has been a cholecystectomy. The bile ducts are normal in caliber.. There has been a left nephrectomy. There is cysts in the right kidney. There is an enhancing cortical nodule measuring 6 millimeters. MRI may be indicated for further evaluation.. There has been a left hemicolectomy. There is a left lower quadrant colostomy. There is large amount of mesenteric fat at the ostomy. There is no mass or inflammation. There is no bowel obstruction or acute colitis. The stomach, small bowel and appendix are normal.. There is a suprapubic bladder catheter.. There is no ascites or free air, abscess or adenopathy.. There is atrophy of the right psoas muscle. There are bilateral decubitus ulcer defects. There is bony overgrowth of the right ischial tuberosity without specific evidence of acute destructive or traumatic injury..
== END 2017-02-17 01:01 | disposition home or self-care (01) ==
LOC: ED 15:35
DX: N39.0 Urinary tract infection, site not specified (principal); G82.20 Paraplegia, unspecified; G89.29 Other chronic pain; J98.4 Other disorders of lung; K21.9 Gastro-esophageal reflux disease without esophagitis; I12.9 Hypertensive chronic kidney disease with stage 1 through stage 4 chronic kidney disease, or unspecified chronic kidney disease; N18.9 Chronic kidney disease, unspecified; Z87.891 Personal history of nicotine dependence
CPT/HCPCS: 36415; 74177; 80048; 81001; 82962; 85025; 99284; Q9967

== ENCOUNTER 2017-02-28 00:32 | Emergency (ER) | payer MEDICAID ==
[2017-02-28] MEDS ORDERED: PERCOCET 5/325 PO ONE ×2 (00:48→02:13)
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
[2017-02-28 02:13] LABS: Hematocrit 31.3 % (35.5-45.6); Hemoglobin 9.9 gm/dl (11.8-15.2); Mean Corpuscular HGB Conc 32 % (32-34); Mean Corpuscular Hemoglobin 28 pg (28-32); Mean Corpuscular Volume 88 fl (84-94); Platelet Count 169 K/mm3 (140-440); Red Blood Count 3.54 M/mm3 (3.65-5.03); Red Cell Distribution Width 14.9 % (13.2-15.2); White Blood Count 8.3 K/mm3 (4.5-11.0)
[2017-02-28 02:27] LABS: BUN/Creatinine Ratio 18.18; Blood Urea Nitrogen 20 mg/dL (9-20); Carbon Dioxide 22 mmol/L (22-30); Glucose 90 mg/dL (75-100)
[2017-02-28 03:01] LABS: Anion Gap 16 mmol/L; Chloride 104.2 mmol/L (98-107); Potassium 3.9 mmol/L (3.6-5.0); Sodium 138 mmol/L (137-145)
[2017-02-28 03:21] LABS: Bacteria,Urine 4+ /HPF (Negative); Bilirubin,Urine NEG (Negative); Blood,Urine SM (Negative); Ketones,Urine NEG (Negative); Leukocyte Esterase,Urine LG (Negative); Mucus,Urine 1+ /HPF; Nitrite,Urine POS (Negative); Urobilinogen,Urine < 2.0 mg/dL (<2.0)
--- NOTE | 2017-02-28 04:09 | Cat Scan Report ---
FINAL REPORT PROCEDURE: CT ABDOMEN PELVIS WO CON TECHNIQUE: Computerized axial tomography of the abdomen and pelvis was performed without intravenous contrast. This study is performed without intravascular contrast material and its sensitivity for abdominal and pelvic pathology, including neoplasms, inflammation, abscess, free fluid, thrombosis, arterial dissection and infarction, is reduced compared with a contrast enhanced study. HISTORY: abd pain swelling COMPARISON: 02/16/2017 FINDINGS: Visualized lower thorax: No significant abnormality. Liver: Small cysts in the left lobe of the liver is again identified.. Spleen: Normal size and attenuation. Gallbladder and biliary system: The gallbladder is absent. No dilatation of the biliary ductal system. Pancreas: Normal. Adrenals: There has been surgery in the region of the left adrenal gland. The right adrenal gland is normal.. Kidneys: The right kidney has a normal size and appearance. There is a small 6 millimeter area of hyper attenuation within the lateral right renal cortex, this is unchanged since prior exam. No hydronephrosis. The left kidney is absent.. GI tract: The stomach is normal. The small bowel has a normal appearance. No ileus or enteritis. There is been left colectomy. A left lower abdomen ostomy is noted. This has not changed since prior exam.. Lymph nodes and mesentery: There are multiple lymph nodes scattered throughout the abdomen and pelvis.. Vasculature: Mild atherosclerosis of the aorta.. Bladder: There is a suprapubic catheter within the urinary bladder.. Reproductive organs: Normal. Peritoneum: No free fluid. Musculoskeletal structures: Mild degenerative changes of the thoracic and lumbar spine. Other: None. IMPRESSION: There is no evidence of intestinal urinary tract obstruction. There has been previous left nephrectomy. Previous left colectomy with an ostomy identified in the left lower abdomen. There is a suprapubic urinary catheter..
[2017-02-28 05:31] VITALS: BP 121/62
== END 2017-02-28 05:35 | disposition home or self-care (01) ==
LOC: ED 00:32
DX: J98.4 Other disorders of lung (principal); G89.29 Other chronic pain
CPT/HCPCS: 36415; 74176; 80048; 81001; 85027; 87086; 99284

== ENCOUNTER 2017-03-02 01:55 | Emergency (ER) | payer MEDICAID ==
[2017-03-02 03:05] LABS: Basophils % (Auto) 0.8 % (0.0-1.8); Eosinophils % (Auto) 0.7 % (0.0-4.3); Hemoglobin 12.1 gm/dl (11.8-15.2); Mean Corpuscular HGB Conc 32 % (32-34); Mean Corpuscular Hemoglobin 28 pg (28-32); Mean Corpuscular Volume 89 fl (84-94); Platelet Count 224 K/mm3 (140-440); Red Blood Count 4.34 M/mm3 (3.65-5.03); White Blood Count 8.2 K/mm3 (4.5-11.0)
[2017-03-02 03:22] LABS: Hematocrit 36.2 % (35.5-45.6)
[2017-03-02 03:23] LABS: INR 1.02 (0.87-1.13)
[2017-03-02 03:32] LABS: Alanine Aminotransferase 14 units/L (7-56); Alkaline Phosphatase 84 units/L (35-129); Anion Gap 19 mmol/L; BUN/Creatinine Ratio 13.63; Blood Urea Nitrogen 15 mg/dL (9-20); Calcium 9.6 mg/dL (8.4-10.2); Carbon Dioxide 22 mmol/L (22-30); Chloride 99.3 mmol/L (98-107); Glucose 83 mg/dL (75-100); Lipase 12 units/L (13-60); Potassium 4.7 mmol/L (3.6-5.0); Sodium 136 mmol/L (137-145); Total Protein 8.2 g/dL (6.3-8.2)
[2017-03-02 03:44] LABS: Bacteria,Urine 2+ /HPF (Negative); Bilirubin,Urine NEG (Negative); Blood,Urine MOD (Negative); Ketones,Urine TR mg/dL (Negative); Leukocyte Esterase,Urine LG (Negative); Mucus,Urine 1+ /HPF; Nitrite,Urine POS (Negative); Urobilinogen,Urine < 2.0 mg/dL (<2.0)
[2017-03-02] MEDS ORDERED: PERCOCET 5/325 PO ONE (06:57)
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
--- NOTE | 2017-03-02 09:06 | XRay Report ---
AP CHEST: HISTORY: chest pain There is mild hyperinflation. No consolidation, pleural effusion or pneumothorax. Normal heart size. The thoracic cage is grossly intact. IMPRESSION: Mild hyperinflation. No acute change since 02/14/17.
[2017-03-02 10:09] VITALS: BP 130/78
== END 2017-03-02 09:45 | disposition home or self-care (01) ==
LOC: ED 01:55
DX: J20.9 Acute bronchitis, unspecified (principal); N39.0 Urinary tract infection, site not specified; R07.9 Chest pain, unspecified; G82.20 Paraplegia, unspecified; I10 Essential (primary) hypertension; K21.9 Gastro-esophageal reflux disease without esophagitis; F17.200 Nicotine dependence, unspecified, uncomplicated; Z88.0 Allergy status to penicillin
CPT/HCPCS: 36415; 71010; 80053; 81001; 83690; 84484; 85025; 85610; 85730; 87086; 93005; 93010

== ENCOUNTER 2017-03-04 23:55 | Emergency (ER) | payer MEDICAID ==
[2017-03-05 01:38] LABS: Basophils % (Auto) 0.3 % (0.0-1.8); Hematocrit 35.6 % (35.5-45.6); Hemoglobin 11.3 gm/dl (11.8-15.2); Mean Corpuscular HGB Conc 32 % (32-34); Mean Corpuscular Hemoglobin 28 pg (28-32); Mean Corpuscular Volume 88 fl (84-94); Platelet Count 205 K/mm3 (140-440); Red Blood Count 4.05 M/mm3 (3.65-5.03); Red Cell Distribution Width 15.2 % (13.2-15.2); White Blood Count 6.7 K/mm3 (4.5-11.0)
[2017-03-05] MEDS ORDERED: PERCOCET 5/325 ONE (01:39)
[2017-03-05] MEDS ORDERED: PERCOCET 5/325 PO ONE ×2 (01:45→03:51)
[2017-03-05 02:42] LABS: Anion Gap 21 mmol/L; BUN/Creatinine Ratio 9.16; Blood Urea Nitrogen 11 mg/dL (9-20); Calcium 9.1 mg/dL (8.4-10.2); Carbon Dioxide 17 mmol/L (22-30); Chloride 98.8 mmol/L (98-107); Glucose 90 mg/dL (75-100); Potassium 4.3 mmol/L (3.6-5.0); Sodium 132 mmol/L (137-145)
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
--- NOTE | 2017-03-05 04:37 | Ultrasound Report ---
FINAL REPORT PROCEDURE: US ABDOMEN LIMITED TECHNIQUE: Real-time sonography was performed of the urinary bladder with image documentation. CPT 45720 HISTORY: check for suprapubic catheter bulb COMPARISON: No prior studies are available for comparison. FINDINGS: The urinary bladder is empty. No mass is seen. No catheter is seen.. Pelvic contents are otherwise unremarkable. There is no free fluid. IMPRESSION: The urinary bladder is empty. No mass is seen. No catheter is seen.. Pelvic contents are otherwise unremarkable. There is no free fluid.
[2017-03-05 05:37] VITALS: BP 130/76
== END 2017-03-05 05:43 | disposition home or self-care (01) ==
LOC: ED 23:55
DX: T83.010A Breakdown (mechanical) of cystostomy catheter, initial encounter (principal); K21.9 Gastro-esophageal reflux disease without esophagitis; I12.9 Hypertensive chronic kidney disease with stage 1 through stage 4 chronic kidney disease, or unspecified chronic kidney disease; N18.9 Chronic kidney disease, unspecified; F17.200 Nicotine dependence, unspecified, uncomplicated; Z88.0 Allergy status to penicillin
CPT/HCPCS: 36415; 76705; 80048; 85025